=== PATIENT | male | born 1985 | race Caucasian/White ===

== ENCOUNTER 2023-04-02 15:36 | Emergency (ER) | payer MEDICAID ==
[~2023-04-02] VITALS: Ht 165.1 cm; Wt 81.6 kg
[2023-04-02 15:50] VITALS: BP 125/71; PULSE 88; RESP 18; TEMP 98.6; O2SAT 97
[2023-04-02] MEDS ORDERED: KETOROLAC 30 MG/ML VIAL IM ONE (15:55)
[2023-04-02 16:15] VITALS: O2SAT 97
[2023-04-02] MEDS ORDERED: ACET-8905 PO (17:14)
[2023-04-02] MEDS ORDERED: IBUP-2213 PO (17:14)
== END 2023-04-02 17:45 | disposition home or self-care (01) ==
LOC: MED 15:36
DX: S42.001A Fracture of unspecified part of right clavicle, initial encounter for closed fracture (principal); W18.30XA Fall on same level, unspecified, initial encounter; Y93.89 Activity, other specified; Y92.89 Other specified places as the place of occurrence of the external cause; Y99.8 Other external cause status
CPT/HCPCS: 73000; 96372; 99283; J1885